=== PATIENT | female | born 1955 | race Caucasian/White ===

== ENCOUNTER 2019-04-07 10:16 | Inpatient (IN) ==
[2019-04-07] MEDS ORDERED: Piperacillin/Tazobactam 3.375 GM in 0.9 % Sodium Chloride Mini Bag 100 ML IVPB ONE (10:54)
[2019-04-07] MEDS ORDERED: Isovue-370 500 ML BOTTLE IVP ONE (11:02)
[2019-04-07 11:59] LABS: Basophils # 0.1 K/mcL (0.0-0.2); Eosinophils # 0.3 K/mcL (0.0-0.6); Eosinophils % 4.8 %; Hematocrit 40.4 % (35.3-44.9); Hemoglobin 13.6 g/dL (11.5-15.4); Immature Granulocytes % 0.2 % (0-4); Lymphocytes # 2.7 K/mcL (0.6-4.6); Lymphocytes % 44.3 %; Mean Corpuscular HGB Conc 33.7 g/dL (31.6-35.5); Mean Corpuscular Hemoglobin 29.6 pg (28.0-33.3); Mean Corpuscular Volume 87.8 fL (83.0-100.0); Mean Platelet Volume 9.7 fL (9.4-12.4); Monocytes # 0.6 K/mcL (0.0-1.3); Monocytes % 10.3 %; Neutrophils # 2.4 K/mcL (1.6-8.9); Platelet Count 189 K/mcL (140-400); Red Cell Distribution Width 13.2 % (11.5-14.5); Segmented Neutrophils % 39.4 %
[2019-04-07 12:01] LABS: INR 1.1; Prothrombin Time 12.6 Seconds (9.4-12.1)
[2019-04-07 12:03] LABS: Activated Partial Thrombo Time 33.8 Seconds (26.0-36.0)
[2019-04-07 12:15] LABS: BUN/Creatinine Ratio 22 (6-26); Blood Urea Nitrogen 15 mg/dL (8-23); C-Reactive Protein 10 mg/L (Less than 10); Calcium 9.7 mg/dL (8.6-10.3); Carbon Dioxide 25 mEq/L (23-29); Chloride 105 mEq/L (98-107); Glucose 105 mg/dL (70-105); Osmolality,Calculated 285 (280-300); Potassium 3.8 mEq/L (3.5-5.1); Sodium 137 mEq/L (136-145); eGFR For African Americans > 60 (> 60); eGFR For Non-African Americans > 60 (> 60)
[2019-04-07] MEDS ORDERED: Naloxone 0.4 MG/ML INJ IVP PRN (14:15)
[2019-04-07] MEDS: Ampicillin/Sulbactam 3,000 MG in 0.9 % Sodium Chloride Mini Bag 100 ML IVPB SCH (18:59)
[2019-04-07] MEDS: *HR* Heparin 5,000 UNIT/ML VIAL SQ SCH (21:00)
[2019-04-08] MEDS: Ampicillin/Sulbactam 3,000 MG in 0.9 % Sodium Chloride Mini Bag 100 ML IVPB SCH ×3 (00:12→12:56)
[2019-04-08] MEDS: Acetaminophen 325 MG TABLET PO PRN ×2 (00:12→08:08)
[2019-04-08] MEDS ORDERED: Acetaminophen/Aspirin/Caffeine TABLET PO PRN (03:39)
[2019-04-08 04:30] LABS: Basophils % 0.7 %; Eosinophils # 0.4 K/mcL (0.0-0.6); Eosinophils % 6.1 %; Hematocrit 40.4 % (35.3-44.9); Immature Granulocytes % 0.2 % (0-4); Lymphocytes # 2.7 K/mcL (0.6-4.6); Lymphocytes % 47.1 %; Mean Corpuscular HGB Conc 32.2 g/dL (31.6-35.5); Mean Corpuscular Hemoglobin 29.2 pg (28.0-33.3); Mean Corpuscular Volume 90.8 fL (83.0-100.0); Monocytes # 0.7 K/mcL (0.0-1.3); Monocytes % 11.3 %; Platelet Count 194 K/mcL (140-400); Red Blood Count 4.45 M/mcL (3.82-4.97); Red Cell Distribution Width 13.2 % (11.5-14.5); Segmented Neutrophils % 34.6 %; White Blood Count 5.8 K/mcL (4.3-11.1)
[2019-04-08 04:49] LABS: BUN/Creatinine Ratio 13 (6-26); Blood Urea Nitrogen 11 mg/dL (8-23); Calcium 9.7 mg/dL (8.6-10.3); Carbon Dioxide 27 mEq/L (23-29); Chloride 102 mEq/L (98-107); Glucose 100 mg/dL (70-105); Osmolality,Calculated 283 (280-300); Potassium 3.7 mEq/L (3.5-5.1); Sodium 137 mEq/L (136-145); eGFR For African Americans > 60 (> 60); eGFR For Non-African Americans > 60 (> 60)
[2019-04-08] MEDS: *HR* Heparin 5,000 UNIT/ML VIAL SQ SCH ×3 (05:42→23:16)
[2019-04-08] MEDS ORDERED: hydroCHLOROthiazide 25 MG TABLET PO SCH (09:00)
[2019-04-08] MEDS ORDERED: *HR* Labetalol 20 MG/4 ML SYRINGE IVP PRN ×2 (12:53→17:24)
[2019-04-08] MEDS ORDERED: Bupivacaine/EPI 1:200k 0.25%PF 10 ML VIAL INFILT ONE (15:18)
[2019-04-08] MEDS ORDERED: Famotidine 20 MG/2 ML VIAL IVP ONE ×2 (15:25→17:24)
[2019-04-08] MEDS ORDERED: Acetaminophen IV 1,000 MG/100 ML INFUS..BTL IVPB ONE ×2 (15:26→17:24)
[2019-04-08] MEDS ORDERED: Propofol 500 MG/50 ML INFUS..BTL ONE (15:38)
[2019-04-08] MEDS ORDERED: Lidocaine -MPF 2% 2 ML VIAL ONE (15:38)
[2019-04-08] MEDS ORDERED: Ondansetron 4 MG/2 ML VIAL ONE ×2 (15:38→16:12)
[2019-04-08] MEDS ORDERED: *HR* Midazolam HCl 2 MG/2 ML VIAL ONE (15:38)
[2019-04-08] MEDS ORDERED: *HR* Propofol 200 MG/20 ML VIAL IVP ONE (16:06)
[2019-04-08] MEDS ORDERED: Acetaminophen IV 1,000 MG/100 ML INFUS..BTL ONE (16:09)
[2019-04-08] MEDS ORDERED: Dexamethasone 4 MG/ML VIAL ONE (16:12)
[2019-04-08] MEDS ORDERED: *HR* HYDROMORPHONE 2 MG/ML VIAL ONE (17:02)
[2019-04-08] MEDS ORDERED: Naloxone 0.4 MG/ML INJ IVP PRN (17:24)
[2019-04-08] MEDS ORDERED: Ampicillin/Sulbactam 3,000 MG in 0.9 % Sodium Chloride Mini Bag 100 ML IVPB SCH (18:00)
[2019-04-08] MEDS ORDERED: Ondansetron 4 MG/2 ML VIAL IVP PRN (19:02)
[2019-04-08] MEDS ORDERED: *HR* Promethazine 25 MG/ML VIAL IVP ONE (20:04)
[2019-04-08] MEDS: Pantoprazole 40 MG in 0.9 % Sodium Chloride Mini Bag 100 ML IVC SCH (20:20)
[2019-04-08] MEDS: Ampicillin/Sulbactam 3,000 MG in 0.9 % Sodium Chloride 100 ML IVPB SCH (23:17)
[2019-04-09] MEDS ORDERED: Ampicillin/Sulbactam 3,000 MG in 0.9 % Sodium Chloride 100 ML IVPB SCH
[2019-04-09] MEDS: Pantoprazole 40 MG in 0.9 % Sodium Chloride Mini Bag 100 ML IVC SCH ×3 (01:45→11:37)
[2019-04-09] MEDS: Acetaminophen/Aspirin/Caffeine TABLET PO PRN ×2 (04:24→13:37)
[2019-04-09 06:18] LABS: Basophils % 0.6 %; Eosinophils # 0.2 K/mcL (0.0-0.6); Eosinophils % 2.2 %; Hematocrit 41.7 % (35.3-44.9); Hemoglobin 13.4 g/dL (11.5-15.4); Immature Granulocytes % 0.1 % (0-4); Lymphocytes % 43.5 %; Mean Corpuscular HGB Conc 32.1 g/dL (31.6-35.5); Mean Corpuscular Hemoglobin 29.1 pg (28.0-33.3); Mean Corpuscular Volume 90.7 fL (83.0-100.0); Mean Platelet Volume 10.4 fL (9.4-12.4); Monocytes # 0.6 K/mcL (0.0-1.3); Monocytes % 8.9 %; Neutrophils # 3.1 K/mcL (1.6-8.9); Platelet Count 199 K/mcL (140-400); Red Cell Distribution Width 12.9 % (11.5-14.5); Segmented Neutrophils % 44.7 %; White Blood Count 6.9 K/mcL (4.3-11.1)
[2019-04-09] MEDS: *HR* Heparin 5,000 UNIT/ML VIAL SQ SCH ×3 (06:35→21:11)
[2019-04-09] MEDS: Ampicillin/Sulbactam 3,000 MG in 0.9 % Sodium Chloride 100 ML IVPB SCH ×3 (06:35→17:18)
[2019-04-09 06:47] LABS: BUN/Creatinine Ratio 14 (6-26); Blood Urea Nitrogen 9 mg/dL (8-23); Calcium 9.5 mg/dL (8.6-10.3); Carbon Dioxide 26 mEq/L (23-29); Chloride 101 mEq/L (98-107); Glucose 95 mg/dL (70-105); Osmolality,Calculated 284 (280-300); Potassium 3.9 mEq/L (3.5-5.1); Sodium 138 mEq/L (136-145); eGFR For African Americans > 60 (> 60); eGFR For Non-African Americans > 60 (> 60)
[2019-04-09] MEDS: hydroCHLOROthiazide 25 MG TABLET PO SCH (08:43)
[2019-04-09] MEDS: Clotrimazole 1% CRM 15 GM TUBE TP SCH ×2 (08:44→21:37)
[2019-04-09] MEDS: Acetaminophen 325 MG TABLET PO PRN (16:00)
[2019-04-10] MEDS: Ampicillin/Sulbactam 3,000 MG in 0.9 % Sodium Chloride 100 ML IVPB SCH ×3 (02:09→12:30)
[2019-04-10] MEDS: Acetaminophen/Aspirin/Caffeine TABLET PO PRN ×2 (03:09→21:06)
[2019-04-10 07:03] LABS: BUN/Creatinine Ratio 17 (6-26); Blood Urea Nitrogen 14 mg/dL (8-23); Calcium 9.5 mg/dL (8.6-10.3); Carbon Dioxide 28 mEq/L (23-29); Chloride 102 mEq/L (98-107); Glucose 110 mg/dL (70-105); Osmolality,Calculated 287 (280-300); Potassium 3.7 mEq/L (3.5-5.1); Sodium 138 mEq/L (136-145); eGFR For African Americans > 60 (> 60); eGFR For Non-African Americans > 60 (> 60)
[2019-04-10 07:48] LABS: Basophils # 0.1 K/mcL (0.0-0.2); Basophils % 0.8 %; Eosinophils # 0.4 K/mcL (0.0-0.6); Eosinophils % 5.6 %; Hematocrit 42.6 % (35.3-44.9); Hemoglobin 13.8 g/dL (11.5-15.4); Immature Granulocytes % 0.3 % (0-4); Lymphocytes # 3.5 K/mcL (0.6-4.6); Lymphocytes % 46.9 %; Mean Corpuscular HGB Conc 32.4 g/dL (31.6-35.5); Mean Corpuscular Hemoglobin 29.3 pg (28.0-33.3); Mean Corpuscular Volume 90.4 fL (83.0-100.0); Mean Platelet Volume 10.4 fL (9.4-12.4); Monocytes # 0.8 K/mcL (0.0-1.3); Monocytes % 10.4 %; Neutrophils # 2.7 K/mcL (1.6-8.9); Platelet Count 195 K/mcL (140-400); Red Blood Count 4.71 M/mcL (3.82-4.97); Red Cell Distribution Width 13.1 % (11.5-14.5); White Blood Count 7.4 K/mcL (4.3-11.1)
[2019-04-10] MEDS: *HR* Heparin 5,000 UNIT/ML VIAL SQ SCH ×3 (08:07→21:06)
[2019-04-10] MEDS: Clotrimazole 1% CRM 15 GM TUBE TP SCH ×2 (08:08→21:06)
[2019-04-10] MEDS: hydroCHLOROthiazide 25 MG TABLET PO SCH (08:08)
[2019-04-10] MEDS: Ertapenem 1,000 MG in 0.9 % Sodium Chloride Mini Bag 100 ML IVPB SCH (16:01)
[2019-04-11] MEDS: *HR* Heparin 5,000 UNIT/ML VIAL SQ SCH ×3 (05:49→21:19)
[2019-04-11] MEDS: hydroCHLOROthiazide 25 MG TABLET PO SCH (12:15)
[2019-04-11] MEDS: Ertapenem 1,000 MG in 0.9 % Sodium Chloride Mini Bag 100 ML IVPB SCH (12:16)
[2019-04-11] MEDS: Clotrimazole 1% CRM 15 GM TUBE TP SCH ×2 (12:19→21:20)
[2019-04-12] MEDS: *HR* Heparin 5,000 UNIT/ML VIAL SQ SCH ×3 (09:26→20:52)
[2019-04-12] MEDS: hydroCHLOROthiazide 25 MG TABLET PO SCH (09:26)
[2019-04-12] MEDS: Ertapenem 1,000 MG in 0.9 % Sodium Chloride Mini Bag 100 ML IVPB SCH (09:27)
[2019-04-12] MEDS: Clotrimazole 1% CRM 15 GM TUBE TP SCH (09:27)
[2019-04-12] MEDS: Acetaminophen/Aspirin/Caffeine TABLET PO PRN (15:10)
[2019-04-12] MEDS: Acetaminophen 325 MG TABLET PO PRN (20:52)
[2019-04-13] MEDS: Clotrimazole 1% CRM 15 GM TUBE TP SCH ×2 (02:28→11:07)
[2019-04-13] MEDS: *HR* Heparin 5,000 UNIT/ML VIAL SQ SCH (06:06)
[2019-04-13] MEDS: hydroCHLOROthiazide 25 MG TABLET PO SCH (11:06)
[2019-04-13] MEDS: Ertapenem 1,000 MG in 0.9 % Sodium Chloride Mini Bag 100 ML IVPB SCH (11:07)
[2019-04-13 14:36] VITALS: BP 135/79
== END 2019-04-13 17:37 | disposition home health service (06) | DRG 574 ==
LOC: EMEROOARM 10:16 → 3ANU 10:16 → SUATTDRO 15:14 → 3ANU 15:40
PROVIDERS: ADMIT Internal Medicine; ATTEND Internal Medicine

== ENCOUNTER 2020-12-10 10:39 | Observation (INO) ==
[2020-12-10] MEDS ORDERED: Isovue-370 500 ML BOTTLE IVP ONE (10:55)
[2020-12-10 11:19] LABS: Basophils # 0.1 K/mcL (0.0-0.2); Basophils % 0.7 %; Eosinophils # 0.3 K/mcL (0.0-0.6); Eosinophils % 3.5 %; Hematocrit 41.1 % (35.3-44.9); Hemoglobin 13.7 g/dL (11.5-15.4); Immature Granulocytes % 0.4 % (0-4); Lymphocytes # 4.5 K/mcL (0.6-4.6); Lymphocytes % 50.1 %; Mean Corpuscular HGB Conc 33.3 g/dL (31.6-35.5); Mean Corpuscular Hemoglobin 29.7 pg (28.0-33.3); Mean Corpuscular Volume 89.2 fL (83.0-100.0); Monocytes # 0.7 K/mcL (0.0-1.3); Monocytes % 7.9 %; Neutrophils # 3.4 K/mcL (1.6-8.9); Platelet Count 201 K/mcL (140-400); Red Blood Count 4.61 M/mcL (3.82-4.97); Red Cell Distribution Width 13.2 % (11.5-14.5); Segmented Neutrophils % 37.4 %
[2020-12-10 11:40] LABS: BUN/Creatinine Ratio 16 (6-26); Blood Urea Nitrogen 14 mg/dL (8-23); Calcium 9.7 mg/dL (8.6-10.3); Carbon Dioxide 26 mEq/L (23-29); Chloride 102 mEq/L (98-107); Glucose 130 mg/dL (70-105); Osmolality,Calculated 288 (280-300); Potassium 3.3 mEq/L (3.5-5.1); Sodium 138 mEq/L (136-145); eGFR For African Americans > 60 (> 60); eGFR For Non-African Americans > 60 (> 60)
[2020-12-10 11:41] LABS: Troponin I < 0.03 ng/mL (< 0.04)
[2020-12-10] MEDS ORDERED: ceFAZolin 1,000 MG in Water for inj. (sterile) 10 ML IVP ONE (14:29)
[2020-12-10] MEDS ORDERED: Tdap (Boostrix) Vaccine 0.5 ML SYRINGE IM ONE (14:29)
[2020-12-10] MEDS ORDERED: Ketorolac 15 MG/ML VIAL IVP ONE (14:37)
[2020-12-10] MEDS ORDERED: ceFAZolin 2,000 MG in 0.9 % Sodium Chloride 100 ML IVPB STA (15:27)
[2020-12-10] MEDS ORDERED: Naloxone 0.4 MG/ML INJ IVP PRN (15:51)
[2020-12-10] MEDS ORDERED: Ondansetron 4 MG/2 ML VIAL IVP PRN (15:51)
[2020-12-10] MEDS: *HR* Heparin 5,000 UNIT/ML VIAL SQ SCH (18:03)
[2020-12-11] MEDS: Acetaminophen 325 MG TABLET PO PRN ×3 (03:45→20:19)
[2020-12-11] MEDS: *HR* Heparin 5,000 UNIT/ML VIAL SQ SCH ×2 (05:53→19:02)
[2020-12-11 06:15] LABS: Basophils # 0.1 K/mcL (0.0-0.2); Basophils % 0.8 %; Eosinophils # 0.3 K/mcL (0.0-0.6); Eosinophils % 4.1 %; Hematocrit 38.5 % (35.3-44.9); Immature Granulocytes % 0.3 % (0-4); Lymphocytes # 2.4 K/mcL (0.6-4.6); Lymphocytes % 39.1 %; Mean Corpuscular HGB Conc 31.4 g/dL (31.6-35.5); Mean Corpuscular Hemoglobin 28.6 pg (28.0-33.3); Mean Platelet Volume 10.4 fL (9.4-12.4); Monocytes # 0.6 K/mcL (0.0-1.3); Monocytes % 10.1 %; Neutrophils # 2.8 K/mcL (1.6-8.9); Platelet Count 181 K/mcL (140-400); Red Blood Count 4.23 M/mcL (3.82-4.97); Red Cell Distribution Width 13.1 % (11.5-14.5); Segmented Neutrophils % 45.6 %; White Blood Count 6.2 K/mcL (4.3-11.1)
[2020-12-11 06:16] LABS: Hemoglobin 12.1 g/dL (11.5-15.4)
[2020-12-11 06:24] LABS: INR 1.1; Prothrombin Time 13.1 Seconds (9.4-12.1)
[2020-12-11 06:37] LABS: BUN/Creatinine Ratio 18 (6-26); Blood Urea Nitrogen 14 mg/dL (8-23); Calcium 8.8 mg/dL (8.6-10.3); Carbon Dioxide 27 mEq/L (23-29); Chloride 104 mEq/L (98-107); Glucose 98 mg/dL (70-105); Magnesium 1.9 mg/dL (1.6-2.6); Osmolality,Calculated 284 (280-300); Phosphorous 2.9 mg/dL (2.7-4.5); Potassium 3.7 mEq/L (3.5-5.1); Sodium 137 mEq/L (136-145); Troponin I < 0.03 ng/mL (< 0.04); eGFR For African Americans > 60 (> 60); eGFR For Non-African Americans > 60 (> 60)
[2020-12-11] MEDS: Baclofen 10 MG TABLET PO SCH (20:19)
[2020-12-12] MEDS: *HR* Heparin 5,000 UNIT/ML VIAL SQ SCH ×2 (06:51→19:08)
[2020-12-12] MEDS: Baclofen 10 MG TABLET PO SCH ×3 (07:46→21:17)
[2020-12-12 07:48] LABS: Hemoglobin 12.7 g/dL (11.5-15.4); Mean Corpuscular Hemoglobin 28.7 pg (28.0-33.3); Red Blood Count 4.43 M/mcL (3.82-4.97); Red Cell Distribution Width 13.1 % (11.5-14.5)
[2020-12-12 07:50] LABS: Hematocrit 40.1 % (35.3-44.9); Mean Corpuscular HGB Conc 31.7 g/dL (31.6-35.5); Mean Corpuscular Volume 90.5 fL (83.0-100.0); Mean Platelet Volume 11.8 fL (9.4-12.4)
[2020-12-12 09:20] LABS: BUN/Creatinine Ratio 17 (6-26); Blood Urea Nitrogen 12 mg/dL (8-23); Carbon Dioxide 27 mEq/L (23-29); Chloride 106 mEq/L (98-107); Glucose 102 mg/dL (70-105); Magnesium 2.1 mg/dL (1.6-2.6); Osmolality,Calculated 288 (280-300); Phosphorous 2.9 mg/dL (2.7-4.5); Potassium 4.9 mEq/L (3.5-5.1); Sodium 139 mEq/L (136-145); eGFR For African Americans > 60 (> 60); eGFR For Non-African Americans > 60 (> 60)
[2020-12-12] MEDS: Acetaminophen 325 MG TABLET PO PRN ×2 (14:48→21:35)
[2020-12-12] MEDS: *HR* LORazepam 0.5 MG TABLET PO PRN (21:17)
[2020-12-12] MEDS: Melatonin 3 MG TABLET PO PRN (21:17)
[2020-12-13] MEDS: *HR* Heparin 5,000 UNIT/ML VIAL SQ SCH ×2 (05:10→16:25)
[2020-12-13 06:30] LABS: Hematocrit 39.7 % (35.3-44.9); Hemoglobin 12.3 g/dL (11.5-15.4); Mean Corpuscular Hemoglobin 28.7 pg (28.0-33.3); Mean Corpuscular Volume 92.8 fL (83.0-100.0); Mean Platelet Volume 10.3 fL (9.4-12.4); Platelet Count 186 K/mcL (140-400); Red Blood Count 4.28 M/mcL (3.82-4.97); Red Cell Distribution Width 13.2 % (11.5-14.5); White Blood Count 6.8 K/mcL (4.3-11.1)
[2020-12-13 06:56] LABS: BUN/Creatinine Ratio 19 (6-26); Blood Urea Nitrogen 14 mg/dL (8-23); Calcium 9.4 mg/dL (8.6-10.3); Carbon Dioxide 29 mEq/L (23-29); Chloride 110 mEq/L (98-107); Glucose 102 mg/dL (70-105); Osmolality,Calculated 305 (280-300); Potassium 3.7 mEq/L (3.5-5.1); Sodium 147 mEq/L (136-145); eGFR For African Americans > 60 (> 60); eGFR For Non-African Americans > 60 (> 60)
[2020-12-13] MEDS: Baclofen 10 MG TABLET PO SCH ×3 (08:31→23:56)
[2020-12-13] MEDS ORDERED: amLODIPine 5 MG TABLET PO SCH (09:00)
[2020-12-13] MEDS: Acetaminophen 325 MG TABLET PO PRN ×2 (09:42→23:55)
[2020-12-13] MEDS: *HR* LORazepam 0.5 MG TABLET PO PRN (23:56)
[2020-12-14] MEDS: *HR* Heparin 5,000 UNIT/ML VIAL SQ SCH ×2 (06:14→18:36)
[2020-12-14] MEDS: NIFEdipine XL (24 HR) 30 MG TAB.ER.24 PO SCH (09:12)
[2020-12-14] MEDS: Baclofen 10 MG TABLET PO SCH ×3 (09:12→21:03)
[2020-12-14] MEDS: Acetaminophen 325 MG TABLET PO PRN ×2 (13:23→21:03)
[2020-12-14] MEDS: Melatonin 3 MG TABLET PO PRN (21:04)
[2020-12-14] MEDS: *HR* LORazepam 0.5 MG TABLET PO PRN (21:04)
[2020-12-15 04:35] LABS: Basophils % 0.6 %; Eosinophils # 0.3 K/mcL (0.0-0.6); Eosinophils % 3.5 %; Hematocrit 37.4 % (35.3-44.9); Hemoglobin 12.2 g/dL (11.5-15.4); Immature Granulocytes % 0.4 % (0-4); Lymphocytes % 42.9 %; Mean Corpuscular HGB Conc 32.6 g/dL (31.6-35.5); Mean Corpuscular Hemoglobin 29.3 pg (28.0-33.3); Mean Corpuscular Volume 89.9 fL (83.0-100.0); Mean Platelet Volume 10.3 fL (9.4-12.4); Monocytes # 0.6 K/mcL (0.0-1.3); Monocytes % 8.6 %; Neutrophils # 3.1 K/mcL (1.6-8.9); Platelet Count 201 K/mcL (140-400); Red Blood Count 4.16 M/mcL (3.82-4.97); Red Cell Distribution Width 13.1 % (11.5-14.5); White Blood Count 7.1 K/mcL (4.3-11.1)
[2020-12-15 04:53] LABS: BUN/Creatinine Ratio 17 (6-26); Blood Urea Nitrogen 13 mg/dL (8-23); Carbon Dioxide 27 mEq/L (23-29); Chloride 104 mEq/L (98-107); Glucose 104 mg/dL (70-105); Magnesium 2.1 mg/dL (1.6-2.6); Osmolality,Calculated 282 (280-300); Sodium 136 mEq/L (136-145); eGFR For African Americans > 60 (> 60); eGFR For Non-African Americans > 60 (> 60)
[2020-12-15] MEDS: *HR* Heparin 5,000 UNIT/ML VIAL SQ SCH ×2 (06:22→18:05)
[2020-12-15] MEDS: NIFEdipine XL (24 HR) 30 MG TAB.ER.24 PO SCH (10:18)
[2020-12-15] MEDS: Baclofen 10 MG TABLET PO SCH ×2 (10:18→16:20)
[2020-12-15] MEDS: Acetaminophen 325 MG TABLET PO PRN (11:51)
[2020-12-15 14:24] VITALS: BP 111/68; PULSE 76; TEMP 98; O2SAT 96
== END 2020-12-15 19:02 ==
LOC: EMEROOARM 10:39 → 3NENU 10:39 → SUATTDRO 15:39 → 3NENU 16:44
PROVIDERS: ADMIT Internal Medicine; ATTEND Pharmacist